=== PATIENT | male | born 1940 | race Caucasian/White ===

== ENCOUNTER → 2023-11-20 | Outpatient (CLI) | payer MEDICARE | LOC: CSHLAB 08:00 | PROVIDERS: ATTEND Internal Medicine Cardiovascular Disease | DX: Z01.818 Encounter for other preprocedural examination (principal); I48.0 Paroxysmal atrial fibrillation | CPT/HCPCS: 80053; 81003; 85027; 85610; 85730; 86850; 86870; 86900; 86901; 93005; 93010 ==